=== PATIENT | female | born 1945 | race Caucasian/White ===

== ENCOUNTER → 2024-01-31 10:00 | Outpatient (REF) | payer OTHER, SELFPAY ==
[2024-01-31 10:27] LABS: % Basophils 0.7 % (0-2); % Eosinophils 4.7 % (0-6); % Immature Granulocytes 0.2 % (0-0.5); % Lymphocytes 28.9 % (20.5-51.1); % Monocytes 7.1 % (1.7-9.3); % Neutrophils 58.4 % (42.2-75.2); Absolute Basophils 0.1 10^3/uL (0-0.2); Absolute Eosinophils 0.4 10^3/uL (0-0.7); Absolute Lymphocytes 2.3 10^3/uL (1.2-3.4); Absolute Monocytes 0.6 10^3/uL (0.1-0.6); Absolute Neutrophils 4.7 10^3/uL (1.4-6.5); Hemoglobin 14.2 g/dL (12.0-16.0); Mean Corp Hgb Conc. 33.8 g/dL (33.0-37.0); Mean Corpuscular Hgb 28.2 pg (27.0-31.0); Mean Corpuscular Volume 83.5 fL (81.0-99.0); Mean Platelet Volume 9.3 fL (7.4-10.4); Nucleated Red Blood Cells % 0 %; Platelet Count 248 10^3/uL (130-400); Red Blood Cell Count 5.03 10^6/uL (4.20-5.40); Red Cell Dist. Width 14.4 % (11.5-14.5)
[2024-01-31 11:31] LABS: ALT (SGPT) 38 U/L (0-35); AST (SGOT) 43 U/L (14-36); Albumin 4.4 g/dl (3.5-5.0); Alkaline Phosphatase 85 U/L (38-126); Blood Urea Nitrogen 15 mg/dl (7-17); Calcium 9.1 mg/dl (8.4-10.2); Carbon Dioxide 23 mmol/L (22-30); Chloride 105 mmol/L (98-107); Glucose 148 mg/dl (70-99); HDL Cholesterol 69 mg/dl; LDL Cholesterol, Calculated 27 mg/dl; Sodium 137 mmol/L (135-145); Total Bilirubin 0.7 mg/dl (0.2-1.3); Total Cholesterol 120 mg/dl (50-199); Triglyceride 124 mg/dl (10-149); Very Low Density Lipoprotein 24 mg/dl (0-30); eGFR > 60.00
[2024-01-31 12:14] LABS: Glycohemoglobin (HgbA1c) 7.5 % (4.0-5.6)
== END ==
LOC: WDC 10:00
PROVIDERS: ATTENDING PHYSICIAN Family Medicine
DX: Z12.31 Encounter for screening mammogram for malignant neoplasm of breast (principal); E11.65 Type 2 diabetes mellitus with hyperglycemia
CPT/HCPCS: 36415; 77063; 77067; 80053; 80061; 83036; 85025

== ENCOUNTER → 2024-02-21 14:30 | Outpatient (REF) | payer OTHER, SELFPAY | LOC: RAD 14:30 | PROVIDERS: ATTENDING PHYSICIAN Family Medicine | DX: R09.89 Other specified symptoms and signs involving the circulatory and respiratory systems (principal) | CPT/HCPCS: 71046 ==

== ENCOUNTER → 2024-03-18 06:17 | Day surgery (SDC) | payer OTHER, SELFPAY ==
[2024-03-18 07:12] LABS: Glucose - Point of Care 142 mg/dl (70-99)
== END ==
LOC: GI 06:17
PROVIDERS: ATTENDING PHYSICIAN Internal Medicine Gastroenterology
DX: K63.5 Polyp of colon (principal); K57.30 Diverticulosis of large intestine without perforation or abscess without bleeding; K64.8 Other hemorrhoids; K62.89 Other specified diseases of anus and rectum; Z86.010 Personal history of colon polyps
CPT/HCPCS: 45380; 88305; 82962

== ENCOUNTER → 2024-04-22 08:18 | Outpatient (REF) | payer OTHER, SELFPAY ==
[2024-04-22 10:21] LABS: ALT (SGPT) 36 U/L (0-35); AST (SGOT) 41 U/L (14-36); Albumin 4.7 g/dl (3.5-5.0); Alkaline Phosphatase 85 U/L (38-126); Blood Urea Nitrogen 15 mg/dl (7-17); Calcium 9.8 mg/dl (8.4-10.2); Carbon Dioxide 24 mmol/L (22-30); Chloride 102 mmol/L (98-107); Glucose 155 mg/dl (70-99); Potassium 3.8 mmol/L (3.5-5.1); Sodium 137 mmol/L (135-145); Total Bilirubin 0.8 mg/dl (0.2-1.3); Total Protein 7.3 g/dl (6.3-8.2); eGFR > 60.00
[2024-04-22 11:56] LABS: Microalbumin, Random Urine 2.1 mg/dl (0.6-1.7); Microalbumin/creatinine Ratio 9.1 mg/g
== END ==
LOC: REG 08:18
PROVIDERS: ATTENDING PHYSICIAN Family Medicine
DX: E11.65 Type 2 diabetes mellitus with hyperglycemia (principal); R79.89 Other specified abnormal findings of blood chemistry
CPT/HCPCS: 36415; 80053; 82043; 82570

== ENCOUNTER → 2024-07-27 09:41 | Outpatient (REF) | payer OTHER, SELFPAY ==
[2024-07-27 12:03] LABS: ALT (SGPT) 38 U/L (0-35); AST (SGOT) 45 U/L (14-36); Albumin 4.5 g/dl (3.5-5.0); Alkaline Phosphatase 79 U/L (38-126); Blood Urea Nitrogen 18 mg/dl (7-17); Calcium 9.7 mg/dl (8.4-10.2); Carbon Dioxide 24 mmol/L (22-30); Chloride 102 mmol/L (98-107); Direct Bilirubin 0.2 mg/dl (0.0-0.4); Glucose 143 mg/dl (70-99); Sodium 141 mmol/L (135-145); Total Bilirubin 0.7 mg/dl (0.2-1.3); eGFR > 60.00
[2024-07-27 12:07] LABS: Potassium 3.9 mmol/L (3.5-5.1)
== END ==
LOC: REG 09:41
PROVIDERS: ATTENDING PHYSICIAN Internal Medicine Gastroenterology
DX: R79.89 Other specified abnormal findings of blood chemistry (principal)
CPT/HCPCS: 36415; 80053; 80076

== ENCOUNTER → 2024-09-14 08:09 | Outpatient (REF) | payer OTHER, SELFPAY ==
[2024-09-14 10:09] LABS: Iron 103 ug/dl (37-170)
[2024-09-14 10:17] LABS: IgA 232 mg/dl (70-400)
[2024-09-14 10:21] LABS: Percent Saturation 24 % (20-50); Total Iron Binding Capacity 426 ug/dl (265-497)
[2024-09-14 10:43] LABS: Ferritin 13.3 ng/ml (11.1-264.0)
[2024-09-15 16:17] LABS: Mitochondrial M2 Ab, IgG 2.3 Units (0.0-24.9)
[2024-09-16 00:10] LABS: Ceruloplasmin 24 mg/dL (16-45)
[2024-09-16 02:25] LABS: F-Actin Antibody IgG 19 Units (0-19)
[2024-09-16 11:28] LABS: tTG IgA Antibody 5.8 EU/ml (0-19); tTG IgG Antibody 7.1 EU/ml (0-19)
[2024-09-16 19:51] LABS: Alpha-1-Antitrypsin 153 mg/dL (90-200); Alpha-1-Antitrypsin Phenotype M1M1
[2024-09-17 00:35] LABS: Endomysial IgA Antibody Titer <1:10 (<1:10)
== END ==
LOC: RAD 08:09
PROVIDERS: ATTENDING PHYSICIAN Internal Medicine Gastroenterology; FAMILY PHYSICIAN Family Medicine
DX: R79.89 Other specified abnormal findings of blood chemistry (principal)
CPT/HCPCS: 36415; 76700; 82103; 82104; 82390; 82728; 82784; 83516; 83540; 83550; 86015; 86231; 86381

== ENCOUNTER → 2024-10-06 12:39 | Outpatient (REF) | payer OTHER, SELFPAY | LOC: RCS 12:39 | PROVIDERS: ATTENDING PHYSICIAN Internal Medicine; FAMILY PHYSICIAN Family Medicine | DX: I10 Essential (primary) hypertension (principal); I44.0 Atrioventricular block, first degree; R94.31 Abnormal electrocardiogram [ECG] [EKG] | CPT/HCPCS: 93306 ==

== ENCOUNTER → 2024-10-13 08:25 | Outpatient (REF) | payer OTHER, SELFPAY | LOC: MRI 3T 08:25 | PROVIDERS: ATTENDING PHYSICIAN Internal Medicine Gastroenterology; FAMILY PHYSICIAN Family Medicine | DX: R79.89 Other specified abnormal findings of blood chemistry (principal) | CPT/HCPCS: 74183; A9575 ==

== ENCOUNTER → 2024-10-23 11:00 | Outpatient (REF) | payer OTHER, SELFPAY ==
[2024-10-23 14:20] LABS: Glycohemoglobin (HgbA1c) 7.1 % (4.0-5.6)
[2024-10-23 15:25] LABS: ALT (SGPT) 41 U/L (0-35); AST (SGOT) 48 U/L (14-36); Albumin 4.6 g/dl (3.5-5.0); Alkaline Phosphatase 71 U/L (38-126); Blood Urea Nitrogen 13 mg/dl (7-17); Calcium 9.4 mg/dl (8.4-10.2); Carbon Dioxide 27 mmol/L (22-30); Chloride 104 mmol/L (98-107); Glucose 143 mg/dl (70-99); HDL Cholesterol 79 mg/dl; LDL Cholesterol, Calculated 27 mg/dl; Potassium 3.9 mmol/L (3.5-5.1); Sodium 143 mmol/L (135-145); Total Bilirubin 0.7 mg/dl (0.2-1.3); Total Cholesterol 127 mg/dl (50-199); Total Protein 7.2 g/dl (6.3-8.2); Triglyceride 105 mg/dl (10-149); Very Low Density Lipoprotein 21 mg/dl (0-30); eGFR > 60.00
== END ==
LOC: REG 11:00
PROVIDERS: ATTENDING PHYSICIAN Family Medicine
DX: E11.65 Type 2 diabetes mellitus with hyperglycemia (principal)
CPT/HCPCS: 36415; 80053; 80061; 83036

== ENCOUNTER → 2025-01-22 10:09 | Outpatient (REF) | payer OTHER, SELFPAY ==
[2025-01-22 11:58] LABS: Glycohemoglobin (HgbA1c) 7.3 % (4.0-5.6)
[2025-01-22 12:01] LABS: ALT (SGPT) 39 U/L (0-35); AST (SGOT) 39 U/L (14-36); Albumin 4.3 g/dl (3.5-5.0); Alkaline Phosphatase 79 U/L (38-126); Blood Urea Nitrogen 15 mg/dl (7-17); Calcium 9.7 mg/dl (8.4-10.2); Carbon Dioxide 29 mmol/L (22-30); Chloride 101 mmol/L (98-107); Glucose 150 mg/dl (70-99); HDL Cholesterol 75 mg/dl; LDL Cholesterol, Calculated 33 mg/dl; Potassium 3.8 mmol/L (3.5-5.1); Sodium 139 mmol/L (135-145); Total Bilirubin 0.8 mg/dl (0.2-1.3); Total Cholesterol 129 mg/dl (50-199); Triglyceride 107 mg/dl (10-149); Very Low Density Lipoprotein 21 mg/dl (0-30); eGFR > 60.00
== END ==
LOC: REG 10:09
PROVIDERS: ATTENDING PHYSICIAN Family Medicine
DX: E11.65 Type 2 diabetes mellitus with hyperglycemia (principal)
CPT/HCPCS: 36415; 80053; 80061; 83036

== ENCOUNTER → 2025-03-02 19:05 | Outpatient (REF) | payer OTHER, SELFPAY | LOC: WDC 19:05 | PROVIDERS: ATTENDING PHYSICIAN Family Medicine | DX: Z12.31 Encounter for screening mammogram for malignant neoplasm of breast (principal) | CPT/HCPCS: 77063; 77067 ==

== ENCOUNTER → 2025-04-24 11:06 | Outpatient (REF) | payer OTHER, SELFPAY ==
[2025-04-24 11:54] LABS: % Basophils 0.5 % (0-2); % Eosinophils 4.5 % (0-6); % Immature Granulocytes 0.3 % (0-0.5); % Lymphocytes 28.6 % (20.5-51.1); % Neutrophils 59.1 % (42.2-75.2); Absolute Eosinophils 0.3 10^3/uL (0-0.7); Absolute Lymphocytes 2.2 10^3/uL (1.2-3.4); Absolute Monocytes 0.5 10^3/uL (0.1-0.6); Absolute Neutrophils 4.5 10^3/uL (1.4-6.5); Hematocrit 41.1 % (37.0-47.0); Hemoglobin 13.7 g/dL (12.0-16.0); Mean Corp Hgb Conc. 33.3 g/dL (33.0-37.0); Mean Corpuscular Hgb 28.5 pg (27.0-31.0); Mean Corpuscular Volume 85.6 fL (81.0-99.0); Mean Platelet Volume 9.4 fL (7.4-10.4); Nucleated Red Blood Cells % 0 %; Platelet Count 239 10^3/uL (130-400); White Blood Cell Count 7.6 10^3/uL (4.8-10.8)
[2025-04-24 12:24] LABS: ALT (SGPT) 32 U/L (0-35); AST (SGOT) 37 U/L (14-36); Albumin 4.6 g/dl (3.5-5.0); Alkaline Phosphatase 63 U/L (38-126); Blood Urea Nitrogen 17 mg/dl (7-17); Calcium 9.5 mg/dl (8.4-10.2); Carbon Dioxide 27 mmol/L (22-30); Chloride 106 mmol/L (98-107); Glucose 139 mg/dl (70-99); Potassium 3.9 mmol/L (3.5-5.1); Sodium 141 mmol/L (135-145); Total Bilirubin 0.7 mg/dl (0.2-1.3); Total Protein 7.2 g/dl (6.3-8.2); eGFR > 60.00
[2025-04-24 12:32] LABS: Microalbumin, Random Urine 0.8 mg/dl (0.6-1.7)
[2025-04-24 13:02] LABS: Glycohemoglobin (HgbA1c) 7.1 % (4.0-5.6)
== END ==
LOC: REG 11:06
PROVIDERS: ATTENDING PHYSICIAN Family Medicine
DX: E11.59 Type 2 diabetes mellitus with other circulatory complications (principal)
CPT/HCPCS: 36415; 80053; 82043; 82570; 83036; 85025

== ENCOUNTER → 2025-05-28 09:49 | Outpatient (REF) | payer OTHER, SELFPAY | LOC: RAD 09:49 | PROVIDERS: ATTENDING PHYSICIAN Physician Assistant; FAMILY PHYSICIAN Family Medicine | DX: R79.89 Other specified abnormal findings of blood chemistry (principal) | CPT/HCPCS: 76700 ==

== ENCOUNTER → 2025-08-25 09:55 | Outpatient (REF) | payer OTHER, SELFPAY ==
[2025-08-25 11:29] LABS: ALT (SGPT) 30 U/L (0-35); AST (SGOT) 36 U/L (14-36); Albumin 4.5 g/dl (3.5-5.0); Alkaline Phosphatase 73 U/L (38-126); Blood Urea Nitrogen 12 mg/dl (7-17); Calcium 9.5 mg/dl (8.4-10.2); Carbon Dioxide 28 mmol/L (22-30); Chloride 104 mmol/L (98-107); Glucose 130 mg/dl (70-99); HDL Cholesterol 68 mg/dl; LDL Cholesterol, Calculated 29 mg/dl; Potassium 3.9 mmol/L (3.5-5.1); Sodium 139 mmol/L (135-145); Total Protein 7.0 g/dl (6.3-8.2); Very Low Density Lipoprotein 23 mg/dl (0-30); eGFR > 60.00
[2025-08-25 12:12] LABS: Glycohemoglobin (HgbA1c) 7.0 % (4.0-5.6)
== END ==
LOC: REG 09:55
PROVIDERS: ATTENDING PHYSICIAN Physician Assistant; FAMILY PHYSICIAN Family Medicine
DX: R79.89 Other specified abnormal findings of blood chemistry (principal); E11.59 Type 2 diabetes mellitus with other circulatory complications
CPT/HCPCS: 36415; 80053; 80061; 82248; 83036